=== PATIENT | male | born 1965 | race Hispanic/Latino ===

== ENCOUNTER 2021-12-06 10:38 | Emergency (ER) | payer OTHER ==
[~2021-12-06] VITALS: Ht 157.5 cm; Wt 73.1 kg
[2021-12-06] MEDS ORDERED: MONTELUKAST SOD10 MG PO (10:49)
[2021-12-06] MEDS ORDERED: LOSARTAN POTASS25 MG PO (10:49)
[2021-12-06] MEDS ORDERED: METOPROLOL SUCC25 MG PO (10:49)
[2021-12-06] MEDS ORDERED: COLACE100 MG PO (10:54)
[2021-12-06] MEDS ORDERED: ANUSOL-HC30 GM RC (10:54)
[2021-12-06] MEDS ORDERED: TRAMADOL HCL 50 MG TAB PO STA (11:01)
== END 2021-12-06 11:32 | disposition home or self-care (01) ==
LOC: FSED 10:46
DX: K64.5 Perianal venous thrombosis (principal); I10 Essential (primary) hypertension
CPT/HCPCS: 99283